=== PATIENT | male | born 1960 | race Caucasian/White ===

== ENCOUNTER 2021-12-28 11:49 | Emergency (ER) | payer MEDICAID ==
[2021-12-28] MEDS ORDERED: SODIUM CHLORIDE 0.9% 1000 ML 1,000 ML IV ONE ×2 (12:21→13:58)
[2021-12-28] MEDS ORDERED: ONDANSETRON 4 MG/2 ML INJ IV SCH (12:30)
[2021-12-28 13:10] LABS: Basophils # (Auto) 0.1 K/mm3 (0.0-0.1); Basophils % (Auto) 0.5 % (0.0-1.8); Eosinophils % (Auto) 0.3 % (0.0-4.3); Lymphocytes # (Auto) 0.8 K/mm3 (1.2-5.4); Lymphocytes % (Auto) 6.8 % (13.4-35.0); Mean Corpuscular HGB Conc 29 % (32-34); Monocytes # (Auto) 0.9 K/mm3 (0.0-0.8); Monocytes % (Auto) 7.4 % (0.0-7.3); Platelet Count 305 K/mm3 (140-440); Red Blood Count 4.39 M/mm3 (3.65-5.03); Red Cell Distribution Width 18.7 % (13.2-15.2)
[2021-12-28 13:11] LABS: Hematocrit 26.7 % (35.5-45.6); Hemoglobin 7.8 gm/dl (11.8-15.2); Mean Corpuscular Volume 61 fl (84-94)
[2021-12-28 13:12] LABS: Bilirubin,Urine NEG (Negative); Blood,Urine NEG (Negative); Color,Urine Straw (Yellow); RBC,Urine < 1.0 /HPF (0.0-6.0); Urobilinogen,Urine < 2.0 mg/dL (<2.0)
[2021-12-28 13:13] LABS: WBC,Urine < 1.0 /HPF (0.0-6.0)
[2021-12-28 13:36] LABS: Calcium 9.2 mg/dL (8.4-10.2)
--- NOTE | 2021-12-28 13:36 | Emergency Department Report ---
ED N/V/D HPI - General Chief complaint: Nausea/Vomiting/Diarrhea Stated complaint: DIABETIC,VOMITTING Time Seen by Provider: 12/28/21 12:22 Source: patient Mode of arrival: Wheelchair Limitations: Language Barrier (Heel Scourer used) - History of Present Illness Initial comments: 61-year-old male with a past medical history of CABG in 2014, hypertension, d iabetes, and right nephrectomy secondary to cancer 11 to 12 years ago presents to the hospital complaining of sudden onset of nausea and vomiting at 11 AM. Patient had 6 episodes of nonbloody vomitus prior to arrival. He denies abdominal pain, chest pain, melena, hematochezia, fever, or hematemesis. Patient is compliant with his insulin which she took this morning. Other medications include metoprolol, oral diabetes medication, Brilinta and other medication. Patient apparently has a history of anemia and had a GI bleed in September. Currently follows with chemical radiation technician Dr. Crawford with an appointment scheduled in 3 days. Patient is scheduled for colonoscopy/endoscopy January 20. Patient also reports previous cholecystectomy [facility] Clerk: Dr. Thomason - Related Data Previous Rx's Medication Instructions Recorded Last Taken Type Ondansetron [Zofran Odt] 4 mg PO Q8HR PRN #20 tab.rapdis 12/28/21 Unknown Rx Allergies Allergy/AdvReac Type Severity Reaction Status Date / Time No Known Allergies Allergy Verified 12/28/21 12:19 ED Review of Systems ROS: Stated complaint: DIABETIC,VOMITTING Other details as noted in HPI Comment: All other systems reviewed and negative ED Past Medical Hx - Past Medical History Hx Hypertension: Yes Hx Diabetes: Yes Hx of Cancer: Yes (Right renal currently in remission) - Surgical History Hx Open Heart Surgery: Yes (CABG 2014) Hx Cholecystectomy: Yes Additional Surgical History: Right nephrectomy secondary to cancer about 2010 - Medications Home Medications: Home Medications Medication Instructions Recorded Confirmed Last Taken Type Ondansetron [Zofran Odt] 4 mg PO Q8HR PRN #20 tab.rapdis 12/28/21 Unknown Rx ED Physical Exam - General Limitations: Language Barrier - Other Other exam information: General: No acute distress Head: Atraumatic Eyes: normal appearance ENT: Moist mucous membranes Neck: Normal appearance, no midline tenderness Chest: Clear to auscultation bilaterally, CABG scar to chest CV: Regular rate and rhythm Abdomen: Soft, normal bowel sounds, nontender, nondistended, no rebound or guarding Rectal: Light brown stool without gross blood. Guaiac positive Back: Normal inspection Extremity: Normal inspection, full range of motion Neuro: Alert O x 3, no facial asymmetry, speech clear, no gross motor sensory deficit Psych: Appropriate behavior Skin: No rash ED Course Vital Signs 12/28/21 12/28/21 12/28/21 12:15 12:33 12:41 Temperature 97.5 F L Pulse Rate 87 Respiratory 22 Rate Blood Pressure Blood Pressure 167/49 [Right] O2 Sat by Pulse 97 97 Oximetry 12/28/21 12/28/21 12/28/21 14:08 14:28 14:30 Temperature Pulse Rate 70 71 72 Respiratory 12 13 14 Rate Blood Pressure 142/57 152/68 152/68 Blood Pressure [Right] O2 Sat by Pulse 100 100 98 Oximetry 12/28/21 12/28/21 12/28/21 14:46 15:00 15:16 Temperature Pulse Rate 71 70 71 Respiratory 15 13 13 Rate Blood Pressure 152/68 153/68 153/68 Blood Pressure [Right] O2 Sat by Pulse 97 96 97 Oximetry 12/28/21 12/28/21 12/28/21 15:30 15:46 16:00 Temperature Pulse Rate 72 71 72 Respiratory 11 L 17 14 Rate Blood Pressure 163/70 163/70 161/76 Blood Pressure [Right] O2 Sat by Pulse 100 99 98 Oximetry 12/28/21 12/28/21 16:16 16:30 Temperature Pulse Rate 72 70 Respiratory 17 13 Rate Blood Pressure 161/76 162/76 Blood Pressure [Right] O2 Sat by Pulse 100 99 Oximetry - Reevaluation(s) Reevaluation #1: 12/28/21 15:35 Patient received 1 L normal saline. States that now her nausea is returning and still feels lightheaded. Patient will be reassessed after repeat Zofran and normal saline bolus. Heel Scourer used. also informed of patient's status and diagnosis and work-up - Consultations Consultation #1: 12/28/21 15:[address] Andrews on-call GI physician who was able to access records and determined that patient is followed by Dr. Srinivasan Davenport. Previous labs on record include hemoglobin 7.8 on November 24, hemoglobin 8.1 on December 17. On November 24 BUN 30 and creatinine 1.27. Patient does not appear to be that far off from his baseline labs. He will inform Dr. Davenport of patient's ED visit and attempt to schedule more urgent follow-up ED Medical Decision Making - Lab Data Result diagrams: 12/28/21 12:31 12/28/21 12:31 Lab Results 12/28/21 12/28/21 12/28/21 Range/Units 12:19 12:31 12:31 WBC 12.4 H (4.5-11.0) K/mm3 RBC 4.39 (3.65-5.03) M/mm3 Hgb 7.8 L (11.8-15.2) gm/dl Hct 26.7 L (35.5-45.6) % MCV 61 L (84-94) fl MCH 18 L (28-32) pg MCHC 29 L (32-34) % RDW 18.7 H (13.2-15.2) % Plt Count 305 (140-440) K/mm3 Lymph % (Auto) 6.8 L (13.4-35.0) % [place] % (Auto) 7.4 H (0.0-7.3) % Eos % (Auto) 0.3 (0.0-4.3) % Baso % (Auto) 0.5 (0.0-1.8) % Lymph # (Auto) 0.8 L (1.2-5.4) K/mm3 [place] # (Auto) 0.9 H (0.0-0.8) K/mm3 Eos # (Auto) 0.0 (0.0-0.4) K/mm3 Baso # (Auto) 0.1 (0.0-0.1) K/mm3 Seg Neutrophils % 85.0 H (40.0-70.0) % Seg Neutrophils # 10.6 H (1.8-7.7) K/mm3 VBG pH (7.320-7.420) Sodium 130 L (137-145) mmol/L Potassium 4.3 (3.6-5.0) mmol/L Chloride 93.9 L (98-107) mmol/L Carbon Dioxide 19 L (22-30) mmol/L Anion Gap 21 mmol/L BUN 34 H (9-20) mg/dL Creatinine 1.6 H (0.8-1.3) mg/dL Estimated GFR 44 ml/min BUN/Creatinine Ratio 21 % Glucose 241 H (75-100) mg/dL POC Glucose 216 H (70-105) mg/dL Calcium 9.2 (8.4-10.2) mg/dL Magnesium (1.7-2.3) mg/dL Total Bilirubin 0.30 (0.1-1.2) mg/dL AST 13 (5-40) units/L ALT 13 (7-56) units/L Alkaline Phosphatase 113 (35-129) units/L Total Protein 7.7 (6.3-8.2) g/dL Albumin 4.0 (3.9-5) g/dL Albumin/Globulin Ratio 1.1 % Lipase (13-60) units/L Urine Color (Yellow) Urine Turbidity (Clear) Urine pH (5.0-7.0) Ur Specific Gerton (1.003-1.030) Urine Protein (Negative) mg/dL Urine Glucose (UA) (Negative) mg/dL Urine Ketones (Negative) mg/dL Urine Blood (Negative) Urine Nitrite (Negative) Urine Bilirubin (Negative) Urine Urobilinogen (<2.0) mg/dL Ur Leukocyte Esterase (Negative) Urine WBC (Auto) (0.0-6.0) /HPF Urine RBC (Auto) (0.0-6.0) /HPF U Epithel Cells (Auto) (0-13.0) /HPF 12/28/21 12/28/21 12/28/21 Range/Units 12:31 12:31 12:31 WBC (4.5-11.0) K/mm3 RBC (3.65-5.03) M/mm3 Hgb (11.8-15.2) gm/dl Hct (35.5-45.6) % MCV (84-94) fl MCH (28-32) pg MCHC (32-34) % RDW (13.2-15.2) % Plt Count (140-440) K/mm3 Lymph % (Auto) (13.4-35.0) % [place] % (Auto) (0.0-7.3) % Eos % (Auto) (0.0-4.3) % Baso % (Auto) (0.0-1.8) % Lymph # (Auto) (1.2-5.4) K/mm3 [place] # (Auto) (0.0-0.8) K/mm3 Eos # (Auto) (0.0-0.4) K/mm3 Baso # (Auto) (0.0-0.1) K/mm3 Seg Neutrophils % (40.0-70.0) % Seg Neutrophils # (1.8-7.7) K/mm3 VBG pH 7.350 (7.320-7.420) Sodium (137-145) mmol/L Potassium (3.6-5.0) mmol/L Chloride (98-107) mmol/L Carbon Dioxide (22-30) mmol/L Anion Gap mmol/L BUN (9-20) mg/dL Creatinine (0.8-1.3) mg/dL Estimated GFR ml/min BUN/Creatinine Ratio % Glucose (75-100) mg/dL POC Glucose (70-105) mg/dL Calcium (8.4-10.2) mg/dL Magnesium 2.00 (1.7-2.3) mg/dL Total Bilirubin (0.1-1.2) mg/dL AST (5-40) units/L ALT (7-56) units/L Alkaline Phosphatase (35-129) units/L Total Protein (6.3-8.2) g/dL Albumin (3.9-5) g/dL Albumin/Globulin Ratio % Lipase 25 (13-60) units/L Urine Color (Yellow) Urine Turbidity (Clear) Urine pH (5.0-7.0) Ur Specific Gerton (1.003-1.030) Urine Protein (Negative) mg/dL Urine Glucose (UA) (Negative) mg/dL Urine Ketones (Negative) mg/dL Urine Blood (Negative) Urine Nitrite (Negative) Urine Bilirubin (Negative) Urine Urobilinogen (<2.0) mg/dL Ur Leukocyte Esterase (Negative) Urine WBC (Auto) (0.0-6.0) /HPF Urine RBC (Auto) (0.0-6.0) /HPF U Epithel Cells (Auto) (0-13.0) /HPF 12/28/21 12/28/21 Range/Units 12:39 Unknown WBC (4.5-11.0) K/mm3 RBC (3.65-5.03) M/mm3 Hgb (11.8-15.2) gm/dl Hct (35.5-45.6) % MCV (84-94) fl MCH (28-32) pg MCHC (32-34) % RDW (13.2-15.2) % Plt Count (140-440) K/mm3 Lymph % (Auto) (13.4-35.0) % [place] % (Auto) (0.0-7.3) % Eos % (Auto) (0.0-4.3) % Baso % (Auto) (0.0-1.8) % Lymph # (Auto) (1.2-5.4) K/mm3 [place] # (Auto) (0.0-0.8) K/mm3 Eos # (Auto) (0.0-0.4) K/mm3 Baso # (Auto) (0.0-0.1) K/mm3 Seg Neutrophils % (40.0-70.0) % Seg Neutrophils # (1.8-7.7) K/mm3 VBG pH (7.320-7.420) Sodium (137-145) mmol/L Potassium (3.6-5.0) mmol/L Chloride (98-107) mmol/L Carbon Dioxide (22-30) mmol/L Anion Gap mmol/L BUN (9-20) mg/dL Creatinine (0.8-1.3) mg/dL Estimated GFR ml/min BUN/Creatinine Ratio % Glucose (75-100) mg/dL POC Glucose 220 H (70-105) mg/dL Calcium (8.4-10.2) mg/dL Magnesium (1.7-2.3) mg/dL Total Bilirubin (0.1-1.2) mg/dL AST (5-40) units/L ALT (7-56) units/L Alkaline Phosphatase (35-129) units/L Total Protein (6.3-8.2) g/dL Albumin (3.9-5) g/dL Albumin/Globulin Ratio % Lipase (13-60) units/L Urine Color Straw (Yellow) Urine Turbidity Clear (Clear) Urine pH 5.0 (5.0-7.0) Ur Specific G[place] 1.023 (1.003-1.030) Urine Protein 30 mg/dl (Negative) mg/dL Urine Glucose (UA) >=500 (Negative) mg/dL Urine Ketones Neg (Negative) mg/dL Urine Blood Neg (Negative) Urine Nitrite Neg (Negative) Urine Bilirubin Neg (Negative) Urine Urobilinogen < 2.0 (<2.0) mg/dL Ur Leukocyte Esterase Neg (Negative) Urine WBC (Auto) < 1.0 (0.0-6.0) /HPF Urine RBC (Auto) < 1.0 (0.0-6.0) /HPF U Epithel Cells (Auto) < 1.0 (0-13.0) /HPF - EKG Data -: EKG Interpreted by Me (Old inferior ID) EKG shows normal: sinus rhythm, ST-T waves (No STEMI) Rate: normal (71) - EKG Data When compared to previous EKG there are: previous EKG unavailable - Radiology Data Radiology results: report reviewed CT ABDOMEN AND PELVIS WITHOUT CONTRAST INDICATION / CLINICAL INFORMATION: n,v. TECHNIQUE: Axial CT images were obtained through the abdomen and pelvis without IV contrast. All CT scans at this location are performed using CT dose reduction for ALARA by means of automated exposure control. COMPARISON: None available. FINDINGS: LOWER CHEST: No significant abnormality. LIVER: No significant abnormality. GALLBLADDER: Cholecystectomy. PANCREAS: No significant abnormality. SPLEEN: No significant abnormality. ADRENALS: No significant abnormality. RIGHT KIDNEY / URETER: Absent LEFT KIDNEY / URETER: Vascular calcification. STOMACH / SMALL BOWEL: No significant abnormality. COLON: Diverticulosis without acute inflammation. APPENDIX: No significant abnormality. PERITONEUM: No free fluid, free air or organized collection. LYMPH NODES: No significant adenopathy. AORTA / ARTERIES/ VEINS: Severe atherosclerotic calcification without acute abnormality. URINARY BLADDER: No significant abnormality. REPRODUCTIVE ORGANS: No significant abnormality. ADDITIONAL FINDINGS: None. SKELETAL SYSTEM: No significant abnormality. IMPRESSION: 1. No acute abnormality. 2. Chronic findings as above. 3. Severe aortoiliac atherosclerosis, accelerated given patient age. - Medical Decision Making 61-year-old male presents to the hospital complaining of sudden onset of m ultiple episodes of a nonpainful vomiting. Patient has anemia which appears to be chronic and he is currently undergoing outpatient work-up. Case discussed with Dr. Andrews who is part of patient's GI group see consult note. Patient feels better after 2 L of normal saline and Zofran and tolerating p.o. intake prior to discharge Critical Care Time: No Critical care attestation.: If time is entered above; I have spent that time in minutes in the direct care of this critically ill patient, excluding procedure time. ED Disposition Clinical Impression: Nausea & vomiting, Diabetes, Acute dehydration, Chronic anemia, Guaiac positive stools Disposition: 01 HOME / SELF CARE / HOMELESS Is pt being admited?: No Does the pt Need Aspirin: No Condition: Stable Instructions: Diabetes Mellitus Type 2 in Adults (ED), Nausea and Vomiting, Adult, Dehydration, Adult, Gastrointestinal Bleeding, [id number] Additional Instructions: Take the medication as prescribed. Return if symptoms worsen as indicated by your discharge instructions. Your case was discussed with your GI specialist. Please follow-up with Dr. Davenport and Dr. Crawford as scheduled Saunemin el medicamento segn lo recetado. Regrese si los sntomas empeoran segn lo indicado por neal instrucciones de valentín. Torres gloria fue discutido con torres especialista en GI. Por favor, justyna un seguimiento con el Dr. Davenport y el Dr. Crawford segn lo programado Prescriptions: Ondansetron [Zofran Odt] 4 mg PO Q8HR PRN #20 tab.rapdis PRN Reason: Nausea And Vomiting Referrals: PRIMARY CARE, [Primary Care Provider] - 3-5 Days ERROL DAVENPORT MD [Staff Physician] - 3-5 Days (GI doctor) ANGELES CRAWFORD MD [Referring] - 3-5 Days (Billing Specialist) Time of Disposition: 17:13 Print Language: DJIBOUTIAN
--- NOTE | 2021-12-28 14:35 | Cat Scan Report ---
CT ABDOMEN AND PELVIS WITHOUT CONTRAST INDICATION / CLINICAL INFORMATION: n,v. TECHNIQUE: Axial CT images were obtained through the abdomen and pelvis without IV contrast. All CT scans at this location are performed using CT dose reduction for ALARA by means of automated exposure control. COMPARISON: None available. FINDINGS: LOWER CHEST: No significant abnormality. LIVER: No significant abnormality. GALLBLADDER: Cholecystectomy. PANCREAS: No significant abnormality. SPLEEN: No significant abnormality. ADRENALS: No significant abnormality. RIGHT KIDNEY / URETER: Absent LEFT KIDNEY / URETER: Vascular calcification. STOMACH / SMALL BOWEL: No significant abnormality. COLON: Diverticulosis without acute inflammation. APPENDIX: No significant abnormality. PERITONEUM: No free fluid, free air or organized collection. LYMPH NODES: No significant adenopathy. AORTA / ARTERIES/ VEINS: Severe atherosclerotic calcification without acute abnormality. URINARY BLADDER: No significant abnormality. REPRODUCTIVE ORGANS: No significant abnormality. ADDITIONAL FINDINGS: None. SKELETAL SYSTEM: No significant abnormality. IMPRESSION: 1. No acute abnormality. 2. Chronic findings as above. 3. Severe aortoiliac atherosclerosis, accelerated given patient age. Signer Name: Rommel Olvera MD Signed: 12/28/2021 2:31 PM Workstation Name: [id number]
[2021-12-28] MEDS ORDERED: ONDANSETRON 4 MG/2 ML INJ IV ONE (15:31)
[2021-12-28 17:49] VITALS: BP 160/77
--- NOTE | 2021-12-29 10:21 | Electrocardiograph Report ---
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
== END 2021-12-28 18:08 | disposition home or self-care (01) ==
LOC: ED 11:49
DX: E86.0 Dehydration (principal); R11.2 Nausea with vomiting, unspecified; E11.9 Type 2 diabetes mellitus without complications; D64.9 Anemia, unspecified; R19.5 Other fecal abnormalities; I10 Essential (primary) hypertension; C80.1 Malignant (primary) neoplasm, unspecified; C79.01 Secondary malignant neoplasm of right kidney and renal pelvis; Z90.49 Acquired absence of other specified parts of digestive tract; Z79.899 Other long term (current) drug therapy; Z98.890 Other specified postprocedural states
CPT/HCPCS: 36415; 74176; 80053; 81001; 82271; 82805; 82962; 83690; 83735; 85025; 93005; 93010; 96361; 96374; 96376; 99285; J2405; J7030; 99284; Q0162

== ENCOUNTER 2022-06-24 15:21 | Emergency (ER) | payer MEDICAID ==
--- NOTE | 2022-06-24 16:06 | XRay Report ---
CHEST 2 VIEWS INDICATION / CLINICAL INFORMATION: Lightheadedness/Dizziness. COMPARISON: None available. FINDINGS: SUPPORT DEVICES: None. HEART / MEDIASTINUM: No significant abnormality. LUNGS / PLEURA: No significant pulmonary or pleural abnormality. No pneumothorax. ADDITIONAL FINDINGS: Surgical changes from prior CABG. IMPRESSION: 1. No acute findings. Signer Name: Chencho Stark MD Signed: 06/24/2022 4:02 PM Workstation Name: [email or web address]
[2022-06-24 16:36] LABS: Basophils % (Auto) 0.2 % (0.0-1.8); Eosinophils % (Auto) 0.2 % (0.0-4.3); Hematocrit 45.6 % (35.5-45.6); Hemoglobin 15.1 gm/dl (11.8-15.2); Lymphocytes # (Auto) 0.8 K/mm3 (1.2-5.4); Lymphocytes % (Auto) 5.6 % (13.4-35.0); Mean Corpuscular HGB Conc 33 % (32-34); Mean Corpuscular Volume 83 fl (84-94); Monocytes # (Auto) 0.8 K/mm3 (0.0-0.8); Monocytes % (Auto) 5.4 % (0.0-7.3); Platelet Count 185 K/mm3 (140-440); Red Blood Count 5.51 M/mm3 (3.65-5.03); Red Cell Distribution Width 16.9 % (13.2-15.2)
[2022-06-24 16:45] LABS: INR 0.99 (0.87-1.13)
[2022-06-24 16:57] LABS: Alanine Aminotransferase 19 units/L (7-56); Albumin 4.6 g/dL (3.9-5); BUN/Creatinine Ratio 16; Blood Urea Nitrogen 33 mg/dL (9-20); Calcium 9.7 mg/dL (8.4-10.2); Hemolysis Index 18
[2022-06-24 19:14] VITALS: BP 159/55
== END 2022-06-25 22:49 | disposition left against medical advice (07) ==
LOC: ED 15:21
DX: R20.2 Paresthesia of skin (principal); Z53.21 Procedure and treatment not carried out due to patient leaving prior to being seen by health care provider
CPT/HCPCS: 36415; 71046; 80053; 84484; 85025; 85610